=== PATIENT | female | born 1985 | race Caucasian/White ===

== ENCOUNTER 2017-02-08 18:24 | Emergency (ER) | payer BC ==
[~2017-02-08] VITALS: Ht 167.6 cm; Wt 104.8 kg
[~2017-02-08 18:24] MED LIST: ANTIVERT PO; BACTRIM DS1 TAB PO; CELEXA20 MG PO; CELEXA40 M1 PO; CIPROFLOXACN500 MG PO; CLEOCIN300 MG PO; CLINDAMYCIN150 MG PO; DENIES HOME MEDS.; FIORICET 50-3001 CAP PO; FIORICET PO; HYDROCHLOR12.5 MG/CA PO; IMITREX25 MG PO; LORTAB 7.5 OR; MEDDOSEPAK PO; MUCINEX D1 TAB PO; NAPROXEN SODIU500 M1 PO; NO; NO HOME MEDS; ONDANSETRON4 MG PO; PRENATA5 OR; PROAIR HFA IN; ROBITUSSIN AC10 ML PO; TENORMIN PO; TYLENOL # 31 TA1 PO; ULTRAM50 M1 OR; ULTRAM50 M1 PO; ULTRAM50 MG OR; VERAPAMIL80 M1 PO; ZITHROMAX250 MG PO; ZOFRAN ODT4 MG PO
[2017-02-08 18:31] VITALS: BP 138/93
== END 2017-02-08 20:13 | disposition left against medical advice (07) | DRG 951 ==
LOC: ED 18:24 → LWOBS 20:10
DX: Z91.19 Patient's noncompliance with other medical treatment and regimen (principal)

== ENCOUNTER 2017-03-06 18:48 | Emergency (ER) | payer BC ==
[~2017-03-06] VITALS: Ht 167.6 cm; Wt 106.0 kg
[2017-03-06] MEDS ORDERED: LISINOPRIL20 MG PO (18:57)
[2017-03-06] MEDS ORDERED: CLEOCIN150 MG PO (19:14)
[2017-03-06] MEDS ORDERED: LORTAB 5/3255 MG PO (19:14)
[2017-03-06 19:25] VITALS: BP 128/86
== END 2017-03-06 19:25 | disposition home or self-care (01) | DRG 159 ==
LOC: ED 18:48
DX: K08.89 Other specified disorders of teeth and supporting structures (principal); F17.210 Nicotine dependence, cigarettes, uncomplicated

== ENCOUNTER 2017-07-08 19:02 | Emergency (ER) | payer BC ==
[~2017-07-08] VITALS: Ht 167.6 cm; Wt 106.0 kg
[~2017-07-08 19:02] MED LIST changes: +CLEOCIN150 MG PO; +LISINOPRIL20 MG PO; +LORTAB 5/3255 MG PO
[2017-07-08 19:44] LABS: HEMATOCRIT 51.9 % (37.0-47.0); HEMOGLOBIN 17.5 g/dl (12.0-16.0); IMMATURE GRANULOCYTES 0.4 % (0.0-1.0); MEAN CELL VOLUME 95.1 fL CALC (80.0-100.0); MEAN CORPUSCULAR HGB 32.1 pG CALC (26.0-32.0); MEAN CORPUSCULAR HGB CONC 33.7 g/L CALC (32.0-36.0); NEUT# 10.83 thou/uL (2.00-7.15); RED BLOOD COUNT 5.46 mill/uL (4.20-5.60); RED CELL DISTRI WIDTH 12.4 % (11.5-15.5)
[2017-07-08 19:46] LABS: URINE BILIRUBIN - DIPSTICK NEGATIVE (NEGATIVE); URINE BLOOD DIPSTICK TRACE-INTACT (NEGATIVE); URINE CLARITY CLEAR; URINE COLOR YELLOW; URINE GLUCOSE - DIPSTICK NEGATIVE (NEGATIVE); URINE KETONE NEGATIVE (NEGATIVE); URINE LEUK ESTERASE NEGATIVE (NEGATIVE); URINE NITRITE - DIPSTICK NEGATIVE (Negative); URINE PROTEIN - DIPSTICK NEGATIVE (NEG-TRACE); URINE SPECIFIC GRAVITY >=1.030; URINE UROBILINOGEN - DIPSTICK 0.2 E.U./dL (0.2)
[2017-07-08 20:00] LABS: ALBUMIN 5.1 g/dL (3.2-5.0); ALKALINE PHOSPHATASE 90 u/l (38-126); AMYLASE 59 u/l (30-110); ANION GAP 20 (6-22 (CALC)); BILIRUBIN, TOTAL 0.6 mg/dL (0.0-1.4); BUN 16 mg/dL (7-17); BUN/CREATININE RATIO 22 (12-20 (CALC)); CALCIUM 10.5 mg/dL (8.4-10.2); CARBON DIOXIDE 21 mmol/l (22-30); CHLORIDE 105 mmol/l (95-108); CREATININE 0.7 mg/dL (0.5-1.0); GFR > 60 ML/MIN (>=60 (CALC)); GFR FOR AFR.AMER. > 60 ML/MIN (>=60 (CALC)); GLUCOSE 115 mg/dL (65-105); LIPASE 32 u/l (23-300); POTASSIUM 4.4 mmol/l (3.5-5.1); SGOT/AST 23 u/l (14-36); SGPT/ALT 37 u/l (9-52); SODIUM 142 mmol/l (137-146); TOTAL PROTEIN 8.7 g/dL (6.3-8.2)
[2017-07-08 20:15] LABS: MYOGLOBIN 28 ng/mL (0 - 62)
[2017-07-08] MEDS ORDERED: CIPRO XR500 MG PO (23:47)
[2017-07-08 23:59] VITALS: BP 124/73
== END 2017-07-08 23:45 | disposition home or self-care (01) | DRG 392 ==
LOC: ED 19:02
PROVIDERS: Emergency Medicine
DX: R10.13 Epigastric pain (principal); I10 Essential (primary) hypertension; R19.7 Diarrhea, unspecified; F41.9 Anxiety disorder, unspecified; F17.210 Nicotine dependence, cigarettes, uncomplicated
CPT/HCPCS: S0164

== ENCOUNTER 2017-10-11 06:56 | Day surgery (SDC) | payer BC ==
[~2017-10-11 06:56] MED LIST changes: +CIPRO XR500 MG PO; +EQL IBUPROFEN200 MG PO; +NAPROXEN SOD220 M3 PO; +TRAMADOL HCL50 MG PO; +TYLENOL 500MG TAB PO
[2017-10-11 15:07] VITALS: BP 135/76
[2017-10-12] MEDS ORDERED: ULTRAM50 M1 PO (10:31)
[2017-10-12] MEDS ORDERED: FLEXERIL PO (10:31)
== END 2017-10-11 09:50 | disposition home or self-care (01) | DRG 74 ==
LOC: ORM 06:56
PROVIDERS: ATTEND Anesthesiology Pain Medicine
PROC: 3E0233Z Introduction of Anti-inflammatory into Muscle, Percutaneous Approach (ICD-10-PCS; principal; 2017-10-11)
PROC: 3E023BZ Introduction of Anesthetic Agent into Muscle, Percutaneous Approach (ICD-10-PCS; 2017-10-11)
DX: G57.01 Lesion of sciatic nerve, right lower limb (principal); M54.5 Low back pain
CPT/HCPCS: Q9967

== ENCOUNTER 2017-10-12 10:12 | Emergency (ER) | payer BC ==
[~2017-10-12] VITALS: Ht 167.6 cm; Wt 90.0 kg
[2017-10-12] MEDS ORDERED: FLEXERIL PO (10:31)
[2017-10-12] MEDS ORDERED: ULTRAM50 M1 PO (10:31)
[2017-10-12 10:39] VITALS: BP 145/88
== END 2017-10-12 10:58 | disposition home or self-care (01) | DRG 74 ==
LOC: ED 10:12
DX: G62.9 Polyneuropathy, unspecified (principal); M79.604 Pain in right leg

== ENCOUNTER 2017-12-09 06:34 | Emergency (ER) | payer BC ==
[~2017-12-09] VITALS: Ht 167.6 cm; Wt 100.0 kg
[~2017-12-09 06:34] MED LIST changes: +FLEXERIL PO
[2017-12-09 07:41] LABS: URINE BILIRUBIN - DIPSTICK NEGATIVE (NEGATIVE); URINE BLOOD DIPSTICK NEGATIVE (NEGATIVE); URINE COLOR YELLOW; URINE GLUCOSE - DIPSTICK NEGATIVE (NEGATIVE); URINE KETONE NEGATIVE (NEGATIVE); URINE LEUK ESTERASE NEGATIVE (NEGATIVE); URINE NITRITE - DIPSTICK NEGATIVE (Negative); URINE PROTEIN - DIPSTICK NEGATIVE (NEG-TRACE); URINE SPECIFIC GRAVITY <=1.005; URINE UROBILINOGEN - DIPSTICK 0.2 E.U./dL (0.2)
[2017-12-09 07:45] LABS: URINE CLARITY CLEAR
[2017-12-09 07:48] LABS: HEMATOCRIT 45.8 % (37.0-47.0); HEMOGLOBIN 15.4 g/dl (12.0-16.0); IMMATURE GRANULOCYTES 0.2 % (0.0-1.0); MEAN CELL VOLUME 96.6 fL CALC (80.0-100.0); MEAN CORPUSCULAR HGB 32.5 pG CALC (26.0-32.0); MEAN CORPUSCULAR HGB CONC 33.6 g/L CALC (32.0-36.0); NEUT# 6.61 thou/uL (2.00-7.15); RED BLOOD COUNT 4.74 mill/uL (4.20-5.60); RED CELL DISTRI WIDTH 12.8 % (11.5-15.5)
[2017-12-09 07:59] LABS: ALBUMIN 4.7 g/dL (3.2-5.0); ALKALINE PHOSPHATASE 110 u/l (38-126); ANION GAP 18 (6-22 (CALC)); BILIRUBIN, TOTAL 0.3 mg/dL (0.0-1.4); BUN 19 mg/dL (7-17); BUN/CREATININE RATIO 25 (12-20 (CALC)); CALCIUM 10.8 mg/dL (8.4-10.2); CARBON DIOXIDE 20 mmol/l (22-30); CHLORIDE 110 mmol/l (95-108); CREATININE 0.7 mg/dL (0.5-1.0); GFR > 60 ML/MIN (>=60 (CALC)); GFR FOR AFR.AMER. > 60 ML/MIN (>=60 (CALC)); GLUCOSE 95 mg/dL (65-105); LIPASE 45 u/l (23-300); POTASSIUM 4.5 mmol/l (3.5-5.1); SGOT/AST 27 u/l (14-36); SGPT/ALT 41 u/l (9-52); SODIUM 143 mmol/l (137-146); TOTAL PROTEIN 7.7 g/dL (6.3-8.2)
[2017-12-09] MEDS ORDERED: CYCLOBENZAPR5 MG PO (10:34)
[2017-12-09] MEDS ORDERED: MOTRIN400 MG PO (10:34)
[2017-12-09 10:53] VITALS: BP 143/78
== END 2017-12-09 10:53 | disposition home or self-care (01) | DRG 392 ==
LOC: ED 06:34
PROVIDERS: Family Medicine
DX: R10.11 Right upper quadrant pain (principal); E78.5 Hyperlipidemia, unspecified; I10 Essential (primary) hypertension; M19.90 Unspecified osteoarthritis, unspecified site; F17.210 Nicotine dependence, cigarettes, uncomplicated
CPT/HCPCS: Q9967

== ENCOUNTER 2019-01-16 08:28 | Emergency (ER) | payer BC ==
[~2019-01-16] VITALS: Ht 167.6 cm; Wt 110.9 kg
[~2019-01-16 08:28] MED LIST changes: +CYCLOBENZAPR5 MG PO; +MOTRIN400 MG PO
[2019-01-16] MEDS ORDERED: Levaquin PO (08:51)
[2019-01-16] MEDS ORDERED: ULTRAM50 M1 PO (08:59)
[2019-01-16] MEDS ORDERED: CLEOCIN300 MG PO (08:59)
[2019-01-16 09:03] VITALS: BP 150/87
[2019-01-16] MEDS ORDERED: LORTAB 1010 MG PO (09:15)
== END 2019-01-16 09:19 | disposition home or self-care (01) | DRG 159 ==
LOC: ED 08:28
DX: K04.7 Periapical abscess without sinus (principal); I10 Essential (primary) hypertension; E78.5 Hyperlipidemia, unspecified; F17.210 Nicotine dependence, cigarettes, uncomplicated; M19.90 Unspecified osteoarthritis, unspecified site

== ENCOUNTER 2022-07-07 13:32 | Emergency (ER) | payer BC ==
[~2022-07-07] VITALS: Ht 167.6 cm; Wt 103.2 kg
[2022-07-07] VITALS (9 sets, daily range): BP systolic 128–147; BP diastolic 82–96
[~2022-07-07 13:32] MED LIST changes: +LORTAB 1010 MG PO; +Levaquin PO
[2022-07-07 14:24] LABS: HEMATOCRIT 45.3 % (37.0-47.0); HEMOGLOBIN 15.2 g/dl (12.0-16.0); IMMATURE GRANULOCYTES 0.1 % (0.0-5.0); MEAN CELL VOLUME 91.9 fL CALC (80.0-100.0); MEAN CORPUSCULAR HGB 30.8 pG CALC (26.0-32.0); MEAN CORPUSCULAR HGB CONC 33.6 g/dL CAL (32.0-36.0); NEUT# 5.22 thou/uL (2.00-7.15); RED BLOOD COUNT 4.93 mill/uL (4.20-5.60); RED CELL DISTRI WIDTH 14.3 % (11.5-15.5)
[2022-07-07 14:45] LABS: ALBUMIN 4.4 g/dL (3.2-5.0); ALKALINE PHOSPHATASE 102 u/l (38-126); ANION GAP 12 (6-22 (CALC)); BILIRUBIN, TOTAL 0.3 mg/dL (0.0-1.4); BUN 11 mg/dL (7-17); BUN/CREATININE RATIO 18 (12-20 (CALC)); CHLORIDE 108 mmol/l (95-108); CREATININE 0.6 mg/dL (0.5-1.0); GFR FOR AFR.AMER. > 60 ML/MIN (>=60 (CALC)); GFR OTHER RACES > 60 ML/MIN (>=60 (CALC)); POTASSIUM 3.7 mmol/l (3.5-5.1); SGOT/AST 28 u/l (14-36); SODIUM 142 mmol/l (137-146); TOTAL PROTEIN 7.7 g/dL (6.3-8.2)
[2022-07-07 14:47] LABS: CARBON DIOXIDE 26 mmol/l (22-30)
[2022-07-07 14:56] LABS: MYOGLOBIN 34 ng/mL (0 - 62)
[2022-07-07] MEDS ORDERED: MEDDOSEPAK PO (15:21)
[2022-07-07] MEDS ORDERED: MECLIZINE25 MG PO (15:21)
[2022-07-07] MEDS ORDERED: ONDANSETRON4 MG PO (15:21)
== END 2022-07-07 15:42 | disposition home or self-care (01) | DRG 149 ==
LOC: ED 13:32
PROVIDERS: Emergency Medicine
DX: R42 Dizziness and giddiness (principal); I10 Essential (primary) hypertension; E78.5 Hyperlipidemia, unspecified; F17.210 Nicotine dependence, cigarettes, uncomplicated; Z20.822 Contact with and (suspected) exposure to COVID-19

== ENCOUNTER 2023-03-14 20:27 | Emergency (ER) | payer BC ==
[~2023-03-14] VITALS: Ht 167.6 cm; Wt 96.0 kg
[~2023-03-14 20:27] MED LIST changes: +MECLIZINE25 MG PO
[2023-03-14 21:26] VITALS: BP 181/116
[2023-03-14 21:30] VITALS: BP 179/114
[2023-03-14 21:31] LABS: URINE BILIRUBIN - DIPSTICK NEGATIVE (NEGATIVE); URINE BLOOD DIPSTICK SMALL (NEGATIVE); URINE COLOR YELLOW; URINE GLUCOSE - DIPSTICK NEGATIVE (NEGATIVE); URINE KETONE NEGATIVE (NEGATIVE); URINE LEUK ESTERASE TRACE (NEGATIVE); URINE PROTEIN - DIPSTICK NEGATIVE (NEG-TRACE); URINE SPECIFIC GRAVITY <=1.005; URINE UROBILINOGEN - DIPSTICK 0.2 E.U./dL (0.2)
[2023-03-14 21:33] LABS: URINE NITRITE - DIPSTICK POSITIVE (Negative)
[2023-03-14 21:39] LABS: URINE RBC 0-2 RBC/hpf (0-5)
[2023-03-14 21:40] LABS: URINE WBC 0-2 WBC/hpf (0-5)
[2023-03-14 21:41] LABS: URINE BACTERIA MODERATE hpf
[2023-03-14 22:00] VITALS: BP 163/103
[2023-03-14 22:30] VITALS: BP 159/99
[2023-03-14] MEDS ORDERED: BACTRIM DS1 TAB PO (22:32)
[2023-03-14] MEDS ORDERED: PYRIDIUM200 MG PO (22:32)
[2023-03-14 23:04] VITALS: BP 159/99
== END 2023-03-14 23:04 | disposition home or self-care (01) | DRG 690 ==
LOC: ED 20:27
PROVIDERS: Emergency Medicine
DX: N39.0 Urinary tract infection, site not specified (principal); B96.20 Unspecified Escherichia coli [E. coli] as the cause of diseases classified elsewhere; I10 Essential (primary) hypertension; E78.5 Hyperlipidemia, unspecified; F17.200 Nicotine dependence, unspecified, uncomplicated; T46.5X6A Underdosing of other antihypertensive drugs, initial encounter; Z91.128 Patient's intentional underdosing of medication regimen for other reason